=== PATIENT | male | born 1990 | race Caucasian/White ===

== ENCOUNTER 2020-11-09 08:45 | Emergency (ER) | payer MEDICAID ==
[~2020-11-09] VITALS: Ht 175.3 cm; Wt 72.7 kg
[~2020-11-09 08:45] MED LIST: FLUO-191 PO
[2020-11-09 09:02] VITALS: BP 134/78
== END 2020-11-09 09:40 | disposition left against medical advice (07) ==
LOC: EMS 08:46
DX: F41.9 Anxiety disorder, unspecified (principal); Z53.21 Procedure and treatment not carried out due to patient leaving prior to being seen by health care provider

== ENCOUNTER 2021-02-03 17:06 | Inpatient (IN) | payer MEDICAID ==
[~2021-02-03] VITALS: Ht 172.7 cm; Wt 82.6 kg
[2021-02-03 18:43] LABS: BASOPHILS % (AUTO) 0.7 % (0.0-2.0); HEMATOCRIT 42.5 % (41-53); HEMOGLOBIN 14.3 g/dL (13.5-17.5); LYMPHOCYTES # (AUTO) 0.8 K/uL (1.0-4.8); LYMPHOCYTES % (AUTO) 12.2 % (22.0-44.0); MEAN CORPUSCULAR HEMOGLOBIN 30.7 pg (26.0-34.0); MEAN CORPUSCULAR HGB CONC 33.6 G/dL (31.0-37.0); MEAN CORPUSCULAR VOLUME 91 fL (80-100); MONOCYTES # (AUTO) 0.4 K/uL (0.1-1.0); MONOCYTES % (AUTO) 5.6 % (2.0-9.0); NEUTROPHILS # (AUTO) 5.3 K/uL (1.8-7.7); NEUTROPHILS % (AUTO) 80.5 % (40.0-70.0); PLATELET COUNT (AUTO) 251 K/uL (150-450); RED BLOOD CELL COUNT(AUTO) 4.66 MIL/uL (4.50-5.90); RED CELL DISTRIBUTION WIDTH 13.5 % (11.5-14.5)
[2021-02-03 18:56] LABS: ANION GAP 3 mmol/L (8-16); CALCIUM, TOTAL 8.8 mg/dL (8.8-10.5); CARBON DIOXIDE 31 mmol/L (22-29); CHLORIDE 106 mmol/L (98-107); CREATININE 1.04 mg/dL (0.60-1.30); GLOMERULAR FILTR. RATE CALC > 60 mL/min (>60); GLUCOSE,RANDOM 114 mg/dL (70-110); POTASSIUM 4.1 mmol/L (3.5-5.1); SODIUM SERUM 140 mmol/L (136-145); UREA NITROGEN, BLOOD 14 mg/dL (7-18)
[2021-02-03 19:01] LABS: ALANINE AMINOTRANSFERASE 28 U/L (12-78); ALBUMIN 4.3 g/dL (3.4-5.0); ALKALINE PHOSPHATASE 84 U/L (46-116); ASPARTATE AMINOTRANSFERASE 18 U/L (15-37); BILIRUBIN,TOTAL 0.3 mg/dL (0.1-1.0); TOTAL PROTEIN, SERUM 7.5 g/dL (6.4-8.2)
[2021-02-03 19:12] LABS: AMPHET/METH SCREEN,URINE NEGATIVE (NEGATIVE); BARBITURATE SCREEN, URINE NEGATIVE (NEGATIVE); BENZODIAZEPINES SCREEN,URINE NEGATIVE (NEGATIVE); CANNABINOID SCREEN,URINE NEGATIVE (NEGATIVE); COCAINE SCREEN,URINE NEGATIVE (NEGATIVE); METHADONE SCREEN, URINE NEGATIVE (NEGATIVE); OPIATE SCREEN,URINE NEGATIVE (NEGATIVE)
[2021-02-03 19:14] LABS: PHENCYCLIDINE SCREEN,URINE NEGATIVE (NEGATIVE)
[2021-02-03 19:36] LABS: COVID AG,FIA SOURCE NASOPHARYNGEAL
[2021-02-03] MEDS ORDERED: ZOLPIDEM TARTRATE 10 MG TABLET PO PRN (20:45)
[2021-02-03] MEDS ORDERED: HALOPERIDOL 5 MG TABLET PO PRN (20:45)
[2021-02-03] MEDS ORDERED: LORazepam 2 MG TABLET PO PRN (20:45)
[2021-02-04 00:35] VITALS: BP 115/66
[2021-02-04 03:03] LABS: APPEARANCE,URINE CLEAR (CLEAR); BILIRUBIN,URINE NEGATIVE (NEGATIVE); GLUCOSE, URINE (UA) NEGATIVE (NEGATIVE); KETONES,URINE NEGATIVE (NEGATIVE); LEUKOCYTE ESTERASE ,URINE NEGATIVE (NEGATIVE); NITRATE,URINE NEGATIVE (NEGATIVE); OCCULT BLOOD,URINE NEGATIVE (NEGATIVE); PROTEIN,URINE NEGATIVE (NEGATIVE); UROBILINOGEN,URINE 0.2 mg/dL (<=1.0)
[2021-02-04] MEDS ORDERED: INFLUENZA VIRUS VACCINE QVS 2021-22 (6MO+)/PF 60 MCG/0.5 ML SYRINGE IM. ONE (04:15)
[2021-02-04] MEDS ORDERED: ONDANSETRON HCL 4 MG TABLET PO PRN (06:30)
[2021-02-04] MEDS ORDERED: ALBUTEROL SULFATE HFA 90 MCG/PUFF 8 GM INHALER IH PRN (06:30)
[2021-02-04] MEDS ORDERED: MAGNESIUM HYDROXIDE SUSPENSION 30 ML UDCUP PO PRN (06:30)
[2021-02-04] MEDS ORDERED: ACETAMINOPHEN 325 MG TABLET PO PRN (06:30)
[2021-02-04] MEDS ORDERED: PETROLATUM,WHITE 28 GM JELLY TP PRN (06:30)
[2021-02-04] MEDS ORDERED: LOPERAMIDE HCL 2 MG CAPSULE PO PRN (06:30)
[2021-02-04] MEDS ORDERED: NICOTINE 14 MG/24 HOUR PATCH TD PRN (06:30)
[2021-02-04] MEDS ORDERED: DOCUSATE SODIUM 100 MG CAPSULE PO PRN (06:30)
[2021-02-04] MEDS ORDERED: MAG HYDROX/AL HYDROX/SIMETH ES 30 ML SUSPENSION UDCUP PO PRN (06:30)
[2021-02-04] MEDS ORDERED: IBUPROFEN 400 MG TABLET PO PRN (06:30)
[2021-02-04] MEDS ORDERED: CloNIDine HCL 0.1 MG TABLET PO PRN (06:30)
[2021-02-04 06:37] LABS: CHOL/HDL RATIO 3.9 (4.2-7.3); CHOLESTEROL 142 mg/dL (131-200); HDL CHOLESTEROL 36 mg/dL (40-60); LDL CHOL (CALC.) 87 mg/dL (0-130); TRIGLYCERIDES 96 mg/dL (15-150)
[2021-02-04 10:16] VITALS: BP 139/74
[2021-02-05 09:18] VITALS: BP 113/76
[2021-02-05 16:00] VITALS: BP 116/74
[2021-02-05] MEDS: OLANZapine 5 MG TABLET PO SCH (20:56)
[2021-02-06] MEDS: OLANZapine 5 MG TABLET PO SCH ×3 (09:00→20:44)
[2021-02-06 16:07] VITALS: BP 125/70
[2021-02-07] MEDS: OLANZapine 5 MG TABLET PO SCH ×2 (08:38→21:00)
[2021-02-08] MEDS: OLANZapine 5 MG TABLET PO SCH ×2 (09:00→20:14)
[2021-02-08 18:33] VITALS: BP 131/75
[2021-02-09] MEDS: OLANZapine 5 MG TABLET PO SCH ×3 (08:35→20:16)
[2021-02-09 12:37] LABS: COVID AG,FIA SOURCE NASOPHARYNGEAL
[2021-02-09 14:28] VITALS: BP 139/82
[2021-02-09 16:00] VITALS: BP 134/80
[2021-02-10] MEDS: OLANZapine 5 MG TABLET PO SCH ×3 (08:23→20:03)
[2021-02-10 16:23] VITALS: BP 113/59
[2021-02-11] MEDS: OLANZapine 5 MG TABLET PO SCH ×2 (13:30→20:03)
[2021-02-11 16:00] VITALS: BP 110/80
[2021-02-11 20:15] VITALS: BP 112/76
[2021-02-12] MEDS: OLANZapine 5 MG TABLET PO SCH ×2 (08:42→20:09)
[2021-02-12 12:15] VITALS: BP 102/67
[2021-02-12] MEDS: GuaiFENesin/D-METHORPHAN [SUGAR-FREE] 200-20MG/10 ML SYRUP UDCUP PO PRN (14:12)
[2021-02-12 16:00] VITALS: BP 127/72
[2021-02-13] MEDS: OLANZapine 5 MG TABLET PO SCH ×3 (09:00→20:44)
[2021-02-13 16:00] VITALS: BP 139/74
[2021-02-13] MEDS: GuaiFENesin/D-METHORPHAN [SUGAR-FREE] 200-20MG/10 ML SYRUP UDCUP PO PRN (19:04)
[2021-02-14] MEDS: OLANZapine 5 MG TABLET PO SCH ×2 (08:31→20:55)
[2021-02-14 10:10] VITALS: BP 118/64
[2021-02-14 16:30] VITALS: BP 121/66
[2021-02-15 00:18] VITALS: BP 133/83
[2021-02-15 08:13] VITALS: BP 94/56
[2021-02-15] MEDS: OLANZapine 5 MG TABLET PO SCH ×2 (09:06→20:58)
[2021-02-15 16:03] VITALS: BP 102/73
[2021-02-16 08:20] VITALS: BP 151/101
[2021-02-16] MEDS: OLANZapine 5 MG TABLET PO SCH (08:49)
[2021-02-16 13:40] LABS: COVID AG,FIA SOURCE NASOPHARYNGEAL
[2021-02-16 16:00] VITALS: BP 124/83
[2021-02-16 16:02] VITALS: BP 124/83
[2021-02-16] MEDS: OLANZapine 10 MG TABLET PO SCH (20:52)
[2021-02-17 00:22] VITALS: BP 129/83
[2021-02-17 08:00] VITALS: BP 139/91
[2021-02-17] MEDS: OLANZapine 5 MG TABLET PO SCH (08:48)
[2021-02-17 16:00] VITALS: BP 134/81
[2021-02-17] MEDS: OLANZapine 10 MG TABLET PO SCH (20:16)
[2021-02-18 01:00] VITALS: BP 137/74
[2021-02-18] MEDS: OLANZapine 5 MG TABLET PO SCH (08:21)
[2021-02-18 09:18] VITALS: BP 107/63
[2021-02-18 16:30] VITALS: BP 100/57
[2021-02-18] MEDS: OLANZapine 10 MG TABLET PO SCH (20:14)
[2021-02-19] MEDS: OLANZapine 5 MG TABLET PO SCH (09:14)
[2021-02-19 09:27] VITALS: BP 101/62
[2021-02-19 16:21] VITALS: BP 109/81
[2021-02-19] MEDS: OLANZapine 10 MG TABLET PO SCH (20:01)
[2021-02-20 08:00] VITALS: BP 138/89
[2021-02-20] MEDS: OLANZapine 5 MG TABLET PO SCH (09:20)
[2021-02-20 17:52] VITALS: BP 105/83
[2021-02-20] MEDS: OLANZapine 10 MG TABLET PO SCH (20:06)
[2021-02-21 08:00] VITALS: BP 93/62
[2021-02-21] MEDS: OLANZapine 5 MG TABLET PO SCH (08:51)
[2021-02-21 16:09] VITALS: BP 132/90
[2021-02-21] MEDS: OLANZapine 10 MG TABLET PO SCH (20:02)
[2021-02-22 08:00] VITALS: BP 110/60
[2021-02-22] MEDS: OLANZapine 5 MG TABLET PO SCH (09:18)
[2021-02-22 16:00] VITALS: BP 132/76
[2021-02-22] MEDS: OLANZapine 10 MG TABLET PO SCH (20:29)
[2021-02-23 00:34] VITALS: BP 130/59
[2021-02-23 08:01] VITALS: BP 100/56
[2021-02-23] MEDS ORDERED: OLAN5TAB52 PO (08:08)
[2021-02-23] MEDS ORDERED: OLAN10TA74 PO (08:08)
[2021-02-23] MEDS: OLANZapine 5 MG TABLET PO SCH (08:16)
[2021-02-23 11:06] LABS: COVID AG,FIA SOURCE NASAL SWAB
== END 2021-02-23 16:00 | disposition home or self-care (01) | DRG 750 ==
LOC: EMS 17:12 → 3EI 21:00
PROVIDERS: ADMIT Psychiatry & Neurology Child & Adolescent Psychiatry; ATTEND Psychiatry & Neurology Child & Adolescent Psychiatry
DX: F25.1 Schizoaffective disorder, depressive type (principal); Z59.00 Homelessness unspecified; F17.200 Nicotine dependence, unspecified, uncomplicated; G44.209 Tension-type headache, unspecified, not intractable; G47.00 Insomnia, unspecified; K59.00 Constipation, unspecified; Z20.822 Contact with and (suspected) exposure to COVID-19; F19.10 Other psychoactive substance abuse, uncomplicated; F41.9 Anxiety disorder, unspecified; Z23 Encounter for immunization; Z72.89 Other problems related to lifestyle; Z71.51 Drug abuse counseling and surveillance of drug abuser; Z71.6 Tobacco abuse counseling
CPT/HCPCS: 80053; 80061; 81003; 85025; 90686; 99285; G0480

== ENCOUNTER 2021-09-05 16:06 | Inpatient (IN) | payer MEDICAID ==
[~2021-09-05] VITALS: Ht 188 cm; Wt 86.2 kg
[~2021-09-05 16:06] MED LIST changes: -FLUO-191 PO; +OLAN10TA74 PO; +OLAN5TAB52 PO
[2021-09-05] MEDS ORDERED: OLANZapine 5 MG TABLET PO ONE (16:45)
[2021-09-05] MEDS ORDERED: LORazepam 1 MG TABLET PO ONE (16:45)
[2021-09-05] MEDS ORDERED: DiphenhydrAMINE HCL 25 MG CAPSULE PO ONE (16:45)
[2021-09-05 17:00] LABS: BASOPHILS % (AUTO) 0.4 % (0.0-2.0); EOSINOPHILS % (AUTO) 0.1 % (1.0-6.0); HEMATOCRIT 48.1 % (41-53); HEMOGLOBIN 16.4 g/dL (13.5-17.5); LYMPHOCYTES # (AUTO) 0.7 K/uL (1.0-4.8); MEAN CORPUSCULAR HEMOGLOBIN 30.5 pg (26.0-34.0); MEAN CORPUSCULAR HGB CONC 34.1 G/dL (31.0-37.0); MEAN CORPUSCULAR VOLUME 90 fL (80-100); MONOCYTES # (AUTO) 0.4 K/uL (0.1-1.0); MONOCYTES % (AUTO) 5.3 % (2.0-9.0); NEUTROPHILS # (AUTO) 6.8 K/uL (1.8-7.7); PLATELET COUNT (AUTO) 290 K/uL (150-450); RED BLOOD CELL COUNT(AUTO) 5.37 MIL/uL (4.50-5.90)
[2021-09-05 17:01] LABS: NEUTROPHILS % (AUTO) 85.2 % (40.0-70.0)
[2021-09-05 17:09] LABS: AMPHET/METH SCREEN,URINE NEGATIVE (NEGATIVE); BARBITURATE SCREEN, URINE NEGATIVE (NEGATIVE); BENZODIAZEPINES SCREEN,URINE NEGATIVE (NEGATIVE); CANNABINOID SCREEN,URINE POSITIVE (NEGATIVE); COCAINE SCREEN,URINE NEGATIVE (NEGATIVE); METHADONE SCREEN, URINE NEGATIVE (NEGATIVE); OPIATE SCREEN,URINE NEGATIVE (NEGATIVE); PHENCYCLIDINE SCREEN,URINE NEGATIVE (NEGATIVE)
[2021-09-05 17:19] LABS: ALANINE AMINOTRANSFERASE 62 U/L (12-78); ALKALINE PHOSPHATASE 84 U/L (46-116); ASPARTATE AMINOTRANSFERASE 27 U/L (15-37); BILIRUBIN,TOTAL 0.9 mg/dL (0.1-1.0); CALCIUM, TOTAL 9.7 mg/dL (8.8-10.5); CARBON DIOXIDE 26 mmol/L (22-29); CREATININE 1.07 mg/dL (0.60-1.30); GLOMERULAR FILTR. RATE CALC > 60 mL/min (>60); GLUCOSE,RANDOM 110 mg/dL (70-110); TOTAL PROTEIN, SERUM 9.1 g/dL (6.4-8.2); UREA NITROGEN, BLOOD 18 mg/dL (7-18)
[2021-09-05 17:24] LABS: ANION GAP 10 mmol/L (8-16); CHLORIDE 101 mmol/L (98-107); SODIUM SERUM 137 mmol/L (136-145)
[2021-09-05 17:53] LABS: COVID AG,FIA SOURCE NASOPHARYNGEAL
[2021-09-06] MEDS ORDERED: ZOLPIDEM TARTRATE 10 MG TABLET PO PRN (09:15)
[2021-09-06 12:57] VITALS: BP 134/87
[2021-09-06 16:05] VITALS: BP 141/94
[2021-09-07 00:48] VITALS: BP 123/85
[2021-09-07 08:26] VITALS: BP 122/85
[2021-09-07] MEDS: OLANZapine 5 MG RAPDIS TABLET PO PRN ×2 (09:55→18:21)
[2021-09-07] MEDS: LORazepam 2 MG TABLET PO PRN ×2 (09:55→18:21)
[2021-09-07] MEDS: OLANZapine 10 MG TABLET PO SCH ×2 (13:48→21:14)
[2021-09-07 16:37] VITALS: BP 116/64
[2021-09-08 04:07] VITALS: BP 119/71
[2021-09-08 08:19] VITALS: BP 108/74
[2021-09-08] MEDS: LORazepam 2 MG TABLET PO PRN (08:40)
[2021-09-08] MEDS: OLANZapine 10 MG TABLET PO SCH ×2 (08:40→20:25)
[2021-09-08 16:53] VITALS: BP 131/81
[2021-09-08] MEDS ORDERED: LORazepam 2 MG/ML VIAL ONE (17:52)
[2021-09-08] MEDS ORDERED: HALOPERIDOL LACTATE 5 MG/ML VIAL ONE (17:53)
[2021-09-08] MEDS ORDERED: DiphenhydrAMINE HCL 50 MG/ML VIAL ONE (17:53)
[2021-09-08] MEDS ORDERED: HALOPERIDOL LACTATE 5 MG/ML VIAL IM ONE (18:00)
[2021-09-08] MEDS ORDERED: LORazepam 2 MG/ML VIAL IM ONE (18:00)
[2021-09-08] MEDS ORDERED: DiphenhydrAMINE HCL 50 MG/ML VIAL IM ONE (18:00)
[2021-09-09 01:07] VITALS: BP 128/76
[2021-09-09] MEDS: OLANZapine 10 MG TABLET PO SCH (08:33)
[2021-09-09] MEDS ORDERED: ONDANSETRON HCL 4 MG TABLET PO PRN (09:30)
[2021-09-09] MEDS ORDERED: CloNIDine HCL 0.1 MG TABLET PO PRN (09:30)
[2021-09-09] MEDS ORDERED: LOPERAMIDE HCL 2 MG CAPSULE PO PRN (09:30)
[2021-09-09] MEDS ORDERED: DOCUSATE SODIUM 100 MG CAPSULE PO PRN (09:30)
[2021-09-09] MEDS ORDERED: IBUPROFEN 400 MG TABLET PO PRN (09:30)
[2021-09-09] MEDS ORDERED: ALBUTEROL SULFATE HFA 90 MCG/PUFF 8 GM INHALER IH PRN (09:30)
[2021-09-09] MEDS ORDERED: MAG HYDROX/AL HYDROX/SIMETH ES 30 ML SUSPENSION UDCUP PO PRN (09:30)
[2021-09-09] MEDS ORDERED: NICOTINE 14 MG/24 HOUR PATCH TD PRN (09:30)
[2021-09-09] MEDS ORDERED: MAGNESIUM HYDROXIDE SUSPENSION 30 ML UDCUP PO PRN (09:30)
[2021-09-09] MEDS ORDERED: PETROLATUM,WHITE 28 GM JELLY TP PRN (09:30)
[2021-09-09] MEDS ORDERED: GuaiFENesin/D-METHORPHAN [SUGAR-FREE] 200-20MG/10 ML SYRUP UDCUP PO PRN (09:30)
[2021-09-09] MEDS ORDERED: ACETAMINOPHEN 325 MG TABLET PO PRN (09:30)
[2021-09-09] MEDS ORDERED: OLAN10TA74 PO (11:51)
[2021-09-09] MEDS ORDERED: OLAN10 PO (17:06)
== END 2021-09-09 13:30 | disposition home or self-care (01) | DRG 750 ==
LOC: EMS 16:06 → B3A 09-06 10:40
PROVIDERS: ADMIT Psychiatry & Neurology Child & Adolescent Psychiatry; ATTEND Psychiatry & Neurology Child & Adolescent Psychiatry
DX: F25.1 Schizoaffective disorder, depressive type (principal); F17.210 Nicotine dependence, cigarettes, uncomplicated; F19.10 Other psychoactive substance abuse, uncomplicated; Z20.822 Contact with and (suspected) exposure to COVID-19; K59.00 Constipation, unspecified; R03.0 Elevated blood-pressure reading, without diagnosis of hypertension; Z79.899 Other long term (current) drug therapy
CPT/HCPCS: 80053; 85025; 99285; G0480; J1200; J1630; J2060

== ENCOUNTER 2021-12-07 15:04 | Emergency (ER) | payer MEDICAID ==
[~2021-12-07] VITALS: Ht 188 cm; Wt 88.6 kg
[~2021-12-07 15:04] MED LIST changes: +OLAN10 PO; -OLAN5TAB52 PO
[2021-12-07 15:05] VITALS: BP 137/87
== END 2021-12-07 16:30 | disposition left against medical advice (07) ==
LOC: EMS 15:04
DX: Z53.21 Procedure and treatment not carried out due to patient leaving prior to being seen by health care provider (principal)

== ENCOUNTER 2022-01-25 21:54 | Emergency (ER) | payer MEDICAID ==
[~2022-01-25] VITALS: Ht 188 cm; Wt 86.0 kg
[2022-01-25] MEDS ORDERED: DOXY-354 PO (21:59)
[2022-01-25 22:08] LABS: COVID AG,FIA SOURCE NASAL SWAB
[2022-01-25 22:39] LABS: INFLUENZA TYPE A NEGATIVE FOR TYPE A (NEGATIVE); INFLUENZA TYPE B NEGATIVE FOR TYPE B (NEGATIVE)
[2022-01-26 00:12] VITALS: BP 135/74
== END 2022-01-26 00:15 | disposition home or self-care (01) ==
LOC: EMS 22:11
DX: U07.1 COVID-19 (principal); F20.9 Schizophrenia, unspecified; F17.210 Nicotine dependence, cigarettes, uncomplicated
CPT/HCPCS: 99284; 71046; 87426; 87804; C9803

== ENCOUNTER 2022-08-16 16:32 | Emergency (ER) | payer MEDICAID ==
[~2022-08-16] VITALS: Ht 188 cm; Wt 97.7 kg
[~2022-08-16 16:32] MED LIST changes: +DOXY-354 PO
[2022-08-16] MEDS ORDERED: CLIN30SO2 TP (17:31)
[2022-08-16] MEDS ORDERED: PALI234D IM (17:31)
[2022-08-16 18:30] VITALS: BP 124/71
[2022-08-16] MEDS ORDERED: BACL10TA PO (19:25)
[2022-08-16] MEDS ORDERED: IBUP-1492 PO (19:27)
== END 2022-08-16 20:12 | disposition home or self-care (01) ==
LOC: EMS 16:33
DX: M54.50 Low back pain, unspecified (principal); F20.9 Schizophrenia, unspecified
CPT/HCPCS: 72100; 99283